=== PATIENT | male | born 1945 | race Caucasian/White ===

== ENCOUNTER 2017-05-17 19:32 | Inpatient (IN) | payer OTHER, MEDICARE ==
[~2017-05-17] VITALS: Ht 149.9 cm; Wt 61.8 kg
[~2017-05-17 19:32] MED LIST: AMARYL1 MG PO; AMIODARONE HCL200 MG PO; ASCORBIC ACID500 MG PO; ASPIRIN EC81 MG PO; BASLE60 GM TP; COUMADIN2 MG PO; DIGOXIN125 MCG PO; ENDUR-ACIN500 MG PO; EUCERIN CREME120 GM TOP; FERROUS SULFAT325 MG PO; FLOVENT HFA12 G1 INH; GLUCOSE GEL38 GM PO; GLUCOSE4 GM PO; HYDROMORPHONE HC2 MG PO; LACTULOSE10 GM/15 M PO; LANTUS100 UNITS/ SUB-Q; LYRICA150 MG; LYRICA150 MG PO; MAGNESIUM OXID420 MG PO; METFORMIN HCL500 MG PO; METOPROLOL SUC200 MG PO; MINIPRESS1 MG PO; MIRTAZAPINE30 MG PO; MORPHINE SULFAT30 M1 PO; MULTIVITAMINS1 EAC8 PO; NICOTINE PATCH1 EAC3 TD; NITROGLYCERIN0.4 MG SL; SIMVASTATIN20 MG PO; VENTOLIN HFA18 GM IH; VITAMIN D1000 UNIT PO; ZOFRAN4 MG PO; ZYRTEC10 M3 PO
--- NOTE | 2017-05-18 00:41 | NUR ---
PT ARRIVED ON FLOOR AT 2320. PT AT FIRST REFUSED IV FLUIDS, NEW IV, AND TELE. MD WOODALL WAS CALLED. AT THIS TIME, PT IS GETTIN IV FLUIDS, HE IS WEARING TELE #3 (PT STATED FOR ONLY 1 HR), IV IS STILL A FIELD START. PT STATED THAT HE WILL LEAVE AT 0800 ON 05/18/17. PT ALSO STATED THAT HE DOES NOT FOLLOW A DIABETIC DIET, AND DOES NOT PLAN TO DO SO WHILE HERE. PT IS AAO X4, PT HAS LEFT SIDED ARM WEAKNESS, PERRLA IS +, ALL LOBES ARE CLEAR, RADIAL PULSES +2, NO PERIPHERAL EDEMA NOTED. PT HAS BILATERAL BKA. LAST BM WAS 05/16/17.
--- NOTE | 2017-05-18 02:07 | NUR ---
PT IS SLEEPING AT THIS TIME. HR IS 71, NORMAL SINUS RHYTHM.
--- NOTE | 2017-05-18 02:30 | NUR ---
PT AT THIS TIME HAS TAKEN HIMSELF OFF TELE #3.
--- NOTE | 2017-05-18 04:05 | NUR ---
PT IS SLEEPING AT THIS TIME.
--- NOTE | 2017-05-18 04:45 | NUR ---
PT REFUSED NEURO CHECK AND SECOND ASSESSMENT. PT ALSO IS REFUSING TELE NOW. PT IS BACK TO SLEEP. V/S WERE DONE. THEY WERE WDL.
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
--- NOTE | 2017-05-18 07:35 | NUR ---
ROUNDED WITH COMPANY MARKER RN RICH. PATIENT INFORMED ME THAT HE WILL LEAVE AMA THIS MORNING WHEN HIS GETS HERE. PATIENT IS CONTINUE TO HAVE MILD L SIDED HAND WEAKNESS. PATIENT IS REFUSING MEAGN CHECKS AT THIS TIME. REFUSED LAB WORK THIS AM. INFORMED PATIENT THAT I WOULD CALL DR. WOODALL AND LET HIM KNOW THAT HE IS PLANNING ON LEAVING. PATIENT INFORMED ME THAT HE ALREADY KNOWS THAT HE WANTS TO LEABE BECAUSE THE PATIENT TOLD HIM IN THE ED. PATIENT ORDERED BREAKFAST AND NO OTHER NEEDS AT THIS TIME.
--- NOTE | 2017-05-18 08:02 | NUR ---
CALLED DR. WOODALL TO UPDATE ON PATIENT REQUESTING TO LEAVE AMA. PATIENT SIGNED FORM. AWAITING TO DIRECT SERVICE WORKER PATIENT AT THIS TIME.
--- NOTE | 2017-05-18 08:03 | NUR ---
PT WATCHING TV IN BED. COFFEE AT BEDSIDE, REFUSED WATER. EMPITED TRASH. CALL LIGHT IN REACH.
--- NOTE | 2017-05-18 08:46 | NUR ---
PATIENT SAT ON EDGE OF BED FOR BREAKFAST. PATIENT SWALLOWING WELL. NO ISSUES AT THIS TIME. REMAINS REFUSING MEGAN ASSESSMENT. PATIENT IS NICE ABOUT REFUSING, BUT STATING, " NO I DONT WANT YOU DO TO ANY ASSESSMENT. ". IS ON HER WAY WITH HIS WC. PATIENT REFUSED INSULIN AND PO SCHEDULED MEDICATIONS. PATIENT STATING, " I WILL TAKE MY OWN MEDICATION WHEN HOME". NO OTHER NEEDS AT THIS TIME. CARE MANAGMENT IN ROOM TO INTERVIEW PATIENT.
--- NOTE | 2017-05-18 09:45 | NUR ---
PATIENT REFUSED AM CARE, WILL BE HERE SOON FOR DISCHARGE. B/P MAP WAS 123- NOTIFIED JOVANNI JUAN. CALL LIGHT IN REACH.
--- NOTE | 2017-05-18 10:09 | NUR ---
I CALLED [facility] DR[facility] OFFICE [phone] LEFT MESSAGE TO RETURN MY CALL THIS AM.
--- NOTE | 2017-05-18 11:37 | NUR ---
CHW saw patient in room#110 before leaving [place]. Unknown if son was present in the room or someone else. CHW discussed a follow up home assessment after discharge to make sure VA services are all being provided. CHW will be working with the [facility] and will also work with the VA to change providers per patient request. CHW will follow up with patient next week for a home assessment.
--- NOTE | 2017-05-18 11:45 | NUR ---
CHW met with patient in room#123. Patient was awake and alert/oriented. CHW discussed with patient about meeting after discharge to do a home visit to make sure patient is getting all services he needs. Patient is more than willing to accept any help. CHW will call and schedule a follow up assessment.
--- NOTE | 2017-05-18 20:30 | EKG ---
[facility] [address] [place] [address] Signed Normal sinus rhythm Inferior infarct , age undetermined Anteroseptal infarct , age undetermined Abnormal ECG No previous ECGs available Confirmed by JAVI WOODALL MD ([id number]) on 05/18/2017 8:30:01 PM Electronically Signed By: JAVI WOODALL MD 05/18/17 2030 PATIENT NAME: MICHAEL BACK Electrocardiogram DATE OF : 43 PHYSICIAN: JAVI WOODALL MD REPORT #: [id number] REPORT IS CONFIDENTIAL AND NOT TO BE RELEASED WITHOUT AUTHORIZATION
[2017-08-23] MEDS ORDERED: XARELTO10 MG PO (12:43)
[2017-08-23] MEDS ORDERED: METHADONE HCL5 MG PO (12:43)
[2017-08-23] MEDS ORDERED: DIPHENHYDRAMINE50 M1 PO (12:58)
[2017-08-23] MEDS ORDERED: PREDNISONE50 MG PO (12:59)
[2017-08-23] MEDS ORDERED: NALOXONE INJ (13:00)
[2017-08-23] MEDS ORDERED: NARCAN4 MG NAS (13:00)
== END 2017-05-18 10:50 | disposition left against medical advice (07) | DRG 64 ==
LOC: ED 19:32 → MS 22:44
PROVIDERS: ADMIT Internal Medicine
DX: I63.9 Cerebral infarction, unspecified (principal); G93.41 Metabolic encephalopathy; G81.94 Hemiplegia, unspecified affecting left nondominant side; I10 Essential (primary) hypertension; R29.714 NIHSS score 14; I25.10 Atherosclerotic heart disease of native coronary artery without angina pectoris; I48.0 Paroxysmal atrial fibrillation; J44.9 Chronic obstructive pulmonary disease, unspecified; F17.210 Nicotine dependence, cigarettes, uncomplicated; E11.9 Type 2 diabetes mellitus without complications; G89.4 Chronic pain syndrome; Z79.01 Long term (current) use of anticoagulants; Z79.4 Long term (current) use of insulin
CPT/HCPCS: 70450; 70496; 70498; 71045; 80053; 80061; 80162; 81001; 83036; 83735; 84484; 85025; 85610; 85730; 93005; 93010; 99285; G0480; J3475; J7030; J7120; Q9967

== ENCOUNTER 2017-05-30 17:55 | Emergency (ER) | payer OTHER ==
[~2017-05-30] VITALS: Ht 149.9 cm; Wt 61.8 kg
[2017-05-30] MEDS ORDERED: METHADONE HCL5 MG PO (18:11)
[2017-08-23] MEDS ORDERED: XARELTO10 MG PO (12:43)
[2017-08-23] MEDS ORDERED: METHADONE HCL5 MG PO (12:43)
[2017-08-23] MEDS ORDERED: DIPHENHYDRAMINE50 M1 PO (12:58)
[2017-08-23] MEDS ORDERED: PREDNISONE50 MG PO (12:59)
[2017-08-23] MEDS ORDERED: NARCAN4 MG NAS (13:00)
[2017-08-23] MEDS ORDERED: NALOXONE INJ (13:00)
== END 2017-05-30 20:40 | disposition home or self-care (01) ==
LOC: ED 17:55
DX: J44.0 Chronic obstructive pulmonary disease with (acute) lower respiratory infection (principal); J20.9 Acute bronchitis, unspecified; E11.9 Type 2 diabetes mellitus without complications; F17.200 Nicotine dependence, unspecified, uncomplicated; Z88.1 Allergy status to other antibiotic agents; Z79.899 Other long term (current) drug therapy; Z79.01 Long term (current) use of anticoagulants; Z79.4 Long term (current) use of insulin; Z79.82 Long term (current) use of aspirin
CPT/HCPCS: 71046; 80053; 80162; 83735; 83880; 84484; 85025; 85610; 87502; 94640; 96372; 96374; 99284; J2405; J7030

== ENCOUNTER 2018-03-04 14:43 | Emergency (ER) | payer OTHER ==
[~2018-03-04] VITALS: Ht 149.9 cm; Wt 52.2 kg
[~2018-03-04 14:43] MED LIST changes: +DIPHENHYDRAMINE50 M1 PO; +METHADONE HCL5 MG PO; +NALOXONE INJ; +NARCAN4 MG NAS; +PREDNISONE50 MG PO; +XARELTO10 MG PO
[2018-03-04] MEDS ORDERED: CLEOCIN HCL300 MG PO (18:15)
== END 2018-03-04 18:33 | disposition home or self-care (01) ==
LOC: ED 14:43
DX: T87.43 Infection of amputation stump, right lower extremity (principal); L02.415 Cutaneous abscess of right lower limb; L03.115 Cellulitis of right lower limb; E11.65 Type 2 diabetes mellitus with hyperglycemia; I25.2 Old myocardial infarction; Z86.73 Personal history of transient ischemic attack (TIA), and cerebral infarction without residual deficits; F17.200 Nicotine dependence, unspecified, uncomplicated; Z89.512 Acquired absence of left leg below knee; Z88.8 Allergy status to other drugs, medicaments and biological substances; Z79.899 Other long term (current) drug therapy; Z79.82 Long term (current) use of aspirin; Z79.4 Long term (current) use of insulin
CPT/HCPCS: 36415; 73590; 80053; 85025; 87070; 87077; 87186; 87205; 99283

== ENCOUNTER 2018-12-19 15:27 | Emergency (ER) | payer OTHER ==
[~2018-12-19] VITALS: Ht 149.9 cm; Wt 52.2 kg
--- OUTSIDE RECORDS SUMMARY | ~2018-12-19 | XMS | Clinical Summary ---
Demographics + + + | Address | [address] | | | [place] [address] | + + + | Home Phone | | + + + | Preferred Language | Unknown | + + + | Marital Status | Single | + + + | Baptist Affiliation | Unknown | + + + | Race | Unknown | + + + | Ethnic Group | Unknown | + + + Author + + + | Author | [employer] (Historical as of | | | 10-20-18) | + + + | Organization | [facility] [employer] (Historical as of | | | 10-20-18) | + + + | Address | Unknown | + + + | Phone | Unavailable | + + + Support + + + + + | Name | Relationship | Address | Phone | + + + + + | Chalo Back | ECON | [address] | | | | | [place] | | | | | [address] | | + + + + + Care Team Providers + +------+ + | Care Shellfish Manager Name | Role | Phone | + +------+ + | Francesca Rosales | PP | | | ENROLLMENT MANAGEMENT MANAGER | | | + +------+ + Allergies + + + + + + | Active Allergy | Reactions | Severity | Noted | Comments | | | | | Date | | + + + + + + | Penicillins | Other (See Comments) | Medium | 08/11/19 | unknown | | | | | 13 | | + + + + + + | Sulfa Antibiotics | Other (See Comments) | Medium | 08/11/19 | Unknown | | | | | 13 | | + + + + + + Current Medications + + +-------+---------+------+------+-------+ | Prescription | Sig. | Disp. | Refills | Star | End | Statu | | | | | | t | Date | s | | | | | | Date | | | + + +-------+---------+------+------+-------+ | insulin glargine | Inject 50 Units into | | | | | Activ | | (LANTUS) 100 UNIT/ML | the skin nightly. | | | | | e | | injection | | | | | | | + + +-------+---------+------+------+-------+ | simvastatin | Take 20 mg by mouth | | | | | Activ | | (ZOCOR) 20 MG tablet | nightly. | | | | | e | + + +-------+---------+------+------+-------+ | pregabalin | Take 100 mg by mouth | | | | | Activ | | (LYRICA) 100 MG | 2 (two) times | | | | | e | | capsule | daily. | | | | | | + + +-------+---------+------+------+-------+ | nitroGLYCERIN | Place 0.4 mg under | | | | | Activ | | (NITROSTAT) 0.4 MG | the tongue every 5 | | | | | e | | SL tablet | (five) minutes as | | | | | | | | needed. | | | | | | + + +-------+---------+------+------+-------+ | nicotine (NICODERM | Place 1 patch onto | | | | | Activ | | CQ) 14 MG/24HR | the skin daily. | | | | | e | + + +-------+---------+------+------+-------+ | Multiple | Take 1 tablet by | | | | | Activ | | Vitamins-Minerals | mouth daily. | | | | | e | | (MULTIVITAMIN WITH | | | | | | | | MINERALS) tablet | | | | | | | + + +-------+---------+------+------+-------+ | niacin 500 MG | Take 500 mg by mouth | | | | | Activ | | tablet | daily with | | | | | e | | | breakfast. | | | | | | + + +-------+---------+------+------+-------+ | morphine (MSIR) 30 | Take 30 mg by mouth | | | | | Activ | | MG tablet | every 6 (six) hours | | | | | e | | | as needed. | | | | | | + + +-------+---------+------+------+-------+ | mirtazapine | Take 30 mg by mouth | | | | | Activ | | (REMERON) 30 MG | nightly. | | | | | e | | tablet | | | | | | | + + +-------+---------+------+------+-------+ | albuterol, VENT, | Inhale 2 puffs into | | | | | Activ | | (PROVENTIL | the lungs every 4 | | | | | e | | HFA;VENTOLIN HFA) | (four) hours as | | | | | | | 108 (90 BASE) | needed. | | | | | | | MCG/ACT inhaler | | | | | | | + + +-------+---------+------+------+-------+ | hydrophilic | Apply 60 g topically | | | | | Activ | | ointment | as needed. | | | | | e | + + +-------+---------+------+------+-------+ | HYDROmorphone | Take 2 mg by mouth | | | | | Activ | | (DILAUDID) 2 MG | every 6 (six) hours | | | | | e | | tablet | as needed. | | | | | | + + +-------+---------+------+------+-------+ | glimepiride | Take 1 mg by mouth 3 | | | | | Activ | | (AMARYL) 1 MG tablet | (three) times | | | | | e | | | daily. | | | | | | + + +-------+---------+------+------+-------+ | fluticasone | Inhale 1 puff into | | | | | Activ | | (FLOVENT HFA) 220 | the lungs 2 (two) | | | | | e | | MCG/ACT inhaler | times daily. | | | | | | + + +-------+---------+------+------+-------+ | digoxin (LANOXIN) | Take 125 mcg by | | | | | Activ | | 0.125 MG tablet | mouth daily. | | | | | e | + + +-------+---------+------+------+-------+ | dextrose 5 G | Take 38 g by mouth | | | | | Activ | | chewable tablet | as needed. | | | | | e | + + +-------+---------+------+------+-------+ | cetirizine | Take 10 mg by mouth | | | | | Activ | | (ZYRTEC) 10 MG | daily. | | | | | e | | tablet | | | | | | | + + +-------+---------+------+------+-------+ | aspirin 81 MG EC | Take 81 mg by mouth | | | | | Activ | | tablet | daily with | | | | | e | | | breakfast. | | | | | | + + +-------+---------+------+------+-------+ | amiodarone | Take 200 mg by mouth | | | | | Activ | | (PACERONE) 200 MG | daily. | | | | | e | | tablet | | | | | | | + + +-------+---------+------+------+-------+ | metformin | Take 1,000 mg by | | | | | Activ | | (GLUCOPHAGE) 1000 MG | mouth 2 (two) times | | | | | e | | tablet | daily with meals. | | | | | | + + +-------+---------+------+------+-------+ | warfarin | Take 2 tablets by | | | 11/05 | | Activ | | (COUMADIN) 2 MG | mouth daily. | | | 07/23 | | e | | tablet | | | | 13 | | | + + +-------+---------+------+------+-------+ Active Problems + + + | Problem | Noted Date | + + + | Nonhealing surgical wound | 11/24/2012 | + + + | Acute pain | 11/24/2012 | + + + | PVD (peripheral vascular disease) | 08/18/2012 | + + + | Debility, unspecified | 08/18/2012 | + + + | Fever | 08/17/2012 | + + + | SIRS (systemic inflammatory response syndrome) | 08/17/2012 | + + + | Gangrene of toe (HCC) | 08/15/2012 | + + + | Osteomyelitis of toe of left foot (HCC) | 08/14/2012 | + + + | Cellulitis of toe, left | 08/11/2012 | + + + | DM type 2 (diabetes mellitus, type 2) | 08/11/2012 | + + + | COPD (chronic obstructive pulmonary disease) | 08/11/2012 | + + + | HTN (hypertension) | 08/11/2012 | + + + | CAD (coronary artery disease) | 08/11/2012 | + + + | ARF (acute renal failure) | 08/11/2012 | + + + | Neuropathy | 08/11/2012 | + + + | Dyslipidemia | 08/11/2012 | + + + | PAD (peripheral artery disease) | | + + + | intermediate card tender current use of anticoagulant | | + + + | Current smoker | | + + + | Osteomyelitis (HCC) | | + + + | Hypertension | | + + + | Atrial fibrillation (HCC) | | + + + Family History + + +------+ + | Medical History | Relation | Name | Comments | + + +------+ + | Stroke | Father | | | + + +------+ + | Heart disease | Mother | | | + + +------+ + + +------+ + + | Relation | Name | Status | Comments | + +------+ + + | Father | | | | | | | (Age | | | | | 84) | | + +------+ + + | Mother | | | | | | | (Age | | | | | 85) | | + +------+ + + Social History + +-------+ +--------+------+ | Tobacco Use | Types | Packs/Day | Years | Date | | | | | Used | | + +-------+ +--------+------+ | Current Every Day | | 0.5 | | | | Smoker | | | | | + +-------+ +--------+------+ + +---+---+---+ | Smokeless Tobacco: | | | | | Never Used | | | | + +---+---+---+ + + | Comments: 2.5 PK PER YEAR UNTIL 4 MONTHS AGO WHEN DECREASED TO HALF PK PER DAY | + + + + +---------+ + | Alcohol Use | Drinks/We | oz/Week | Comments | | | ek | | | + + +---------+ + | No | | | | + + +---------+ + + + + | Sex Assigned at | Date Recorded | | | | + + + | Not on file | | + + + Last Filed Vital Signs + + + + | Vital Sign | Reading | Time Taken | + + + + | Blood Pressure | 156/72 | 03/10/2018 12:53 AM PST | + + + + | Pulse | 76 | 03/10/2018 12:53 AM PST | + + + + | Temperature | 36.9 C (98.5 F) | 03/10/2018 12:02 AM PST | + + + + | Respiratory Rate | 16 | 03/10/2018 12:53 AM PST | + + + + | Oxygen Saturation | 96% | 03/10/2018 12:53 AM PST | + + + + | Inhaled Oxygen | - | - | | Concentration | | | + + + + | Weight | 50.8 kg (112 lb) | 03/09/2018 10:15 PM PST | + + + + | Height | 180.3 cm (5' 11") | 11/24/2012 8:28 PM PDT | + + + + | Body Mass Index | 15.62 | 03/09/2018 10:15 PM PST | + + + + Plan of Treatment Not on file Results Not on filefrom Last 3 Months Insurance + +--------+ +------+ + + | Payer | Benefi | Subscriber | Type | Phone | Address | | | t Plan | ID | | | | | | / | | | | | | | Group | | | | | + +--------+ +------+ + + | [employer] | [employer] | [id number] | | [phone] [employer] [id number] | | ADMINISTRATION | [place] | | [phone] | | | [address] | | | | [address] [place], [place] | | | [place] | | | | [phone] | | | ON | | | | | + +--------+ +------+ + + | MEDICARE | MEDICA | [id number] | | | [address] | | | RE | | | | [place] [address] | | | IP-OP | | | | | + +--------+ +------+ + + + +--------+ +--------+ + + | Guarantor Name | Accoun | Relation to | Date | Phone | Billing Address | | | t Type | Patient | of | | | | | | | | | | + +--------+ +--------+ + + | CHALO BACK | Person | Self [birth year] Home: | [address] | | | al/Fam | | 1946 | [phone] [place] | | | [place] | | | [phone] | [phone] | + +--------+ +--------+ + + | CHALO BACK | Raciel | Self [birth year] | Home: | [address] | | | ns | | 1946 | [phone] | [place] | | | [place] | | | [phone] | [phone] | | | [place] | | | | | | | on | | | | | + +--------+ +--------+ + +
--- OUTSIDE RECORDS SUMMARY | ~2018-12-19 | XMS | Encounter Summary ---
Demographics + + + | Address | [address] | | | [place] [address] | + + + | Home Phone | | + + + | Preferred Language | Unknown | + + + | Marital Status | | + + + | Mormonism Affiliation | Unknown | + + + | Race | Unknown | + + + | Ethnic Group | Unknown | + + + Author + + + | Author | [facility] | | | and [place] | + + + | Organization | [facility] | | | and [place] | + + + | Address | Unknown | + + + | Phone | Unavailable | + + + Support + + + + + | Name | Relationship | Address | Phone | + + + + + | Theresa Barrientos | ECON | [place], [place] | | | | | [address] | | + + + + + | Theresa Mann | ECON | [address] | | | | | [place] | | | | | [address] | | + + + + + Care Team Providers + +------+ + | Care Political Science Instructor Name | Role | Phone | + +------+ + | Francesca Birmingham | PCP | | + +------+ + Encounter Details +--------+ + + + + | Date | Type | Department | Care Team | Description | +--------+ + + + + | 09/30/ | Orders Only | [facility] | Provider, | | | 2019 | | [facility] | [address] | | | | | [address] | | | | | [address] [place], [place] | [place] [address] | | | | | [address] | | | | | | [phone] | | | +--------+ + + + + Social History + + + +--------+------+ | Tobacco Use | Types | Packs/Day | Years | Date | | | | | Used | | + + + +--------+------+ | Current Every Day | Cigarettes | 0.5 | | | | Smoker | | | | | + + + +--------+------+ + + | Comments: 2.5 PK PER [...] on file | | + + + + + + + | Job Start Date | Occupation | Industry | + + + + | Not on file | Not on file | Not on file | + + + + + + + + | Travel History | Travel Start | Travel End | + + + + + + | No recent travel history available. | + + documented as of this encounter Functional Status + + + + | Functional Status | Response | Date of Assessment | + + + + | Are you deaf or do you have serious | No | 05/26/2015 | | difficulty hearing? | | | + + + + | Are you blind or do you have serious | No | 05/26/2015 | | difficulty seeing, even when wearing | | | | glasses? | | | + + + + | Do you have serious difficulty walking or | No | 05/26/2015 | | climbing stairs? (5 years old or older) | | | + + + + | Do you have difficulty dressing or bathing? | No | 05/26/2015 | | (5 years old or older) | | | + + + + | Because of a physical, mental, or emotional | No | 05/26/2015 | | condition, do you have difficulty doing | | | | errands alone such as visiting a doctor's | | | | office or shopping? [15 years old or | | | | older)] | | | + + + + + + + + | Cognitive Status | Response | Date of Assessment | + + + + | Because of a physical, mental, or emotional | No | 05/26/2015 | | condition, do you have serious difficulty | | | | concentrating, remembering, or making | | | | decisions? (5 years old or older) | | | + + + + documented as of this encounter Plan of Treatment Not on filedocumented as of this encounter Visit Diagnoses Not on filedocumented in this encounter"
--- OUTSIDE RECORDS SUMMARY | ~2018-12-19 | XMS | Clinical Summary ---
Demographics + + + | Address | [address] | | | [place] [address] | + + + | Home Phone | | + + + | Preferred Language | Unknown | + + + | Marital Status | | + + + | Protestant Affiliation | Unknown | + + + | Race | Unknown | + + + | Ethnic Group | Unknown | + + + Author + + + | Author | [facility] | | | and [place] | + + + | Organization | [facility] | | | and [place] | + + + | Address | Unknown | + + + | Phone | Unavailable | + + + Support + + + + + | Name | Relationship | Address | Phone | + + + + + | Theresa Barrientos | ECON | [place], [place] | | | | | [address] | | + + + + + | Theresa Mann | ECON | [address] | | | | | [place] | | | | | [address] | | + + + + + Care Team Providers + +------+ + | Care Hr Clerk Name | Role | Phone | + +------+ + | Francesca Birmingham | PCP | | + +------+ + Allergies + + + + + + | Active Allergy | Reactions | Severity | Noted | Comments | | | | | Date | | + + + + + + | Capsaicin | | | 04//20 | | | | | | 12 | | + + + + + + | Glyburide | | | /12/23 | Pt states he is | | | | | 12 | not allergic | + + + + + + | Latex | Rash | Low | /05/20 | | | | | | 16 | | + + + + + + | Lisinopril | | | 06/14/19 | No allergy | | | | | 12 | | + + + + + + | Pineapple | Hives | | 03/10/19 | | | | | | 16 | | + + + + + + | Promethazine Hcl | | | 06/14/19 | No allergy | | | | | 12 | | + + + + + + | Sulfa Antibiotics | Other (See Comments) | Medium | 08/11/19 | Unknown | | | | | 13 | | + + + + + + | Sulfamethoxazole | | | 06/14/19 | No allergy | | | | | 12 | | + + + + + + | Varenicline Tartrate | | | /20 | | | | | | 12 | | + + + + + + Medications + + + +---------+------+------+-------+ | Medication | Sig | Dispensed | Refills | Star | End | Statu | | | | | | t | Date | s | | | | | | Date | | | + + + +---------+------+------+-------+ | insulin glargine | inject 27 units | | 0 | 04/1 | | Activ | | (LANTUS SOLOSTAR) | subcutaneous at | | | 0/20 | | e | | 100 units/mL | bedtime | | | 12 | | | | injection | | | | | | | + + + +---------+------+------+-------+ | Multiple | one daily | | 0 | 04/1 | | Activ | | Vitamins-Minerals | | | | 0/20 | | e | | (PX ADVANCED FORMULA | | | | 12 | | | | MULTIVITS) TABS | | | | | | | + + + +---------+------+------+-------+ | pregabalin | Take 150 mg by mouth | | 0 | 04/1 | | Activ | | (LYRICA) 150 MG | 3 times daily. | | | 0/20 | | e | | capsule | | | | 12 | | | + + + +---------+------+------+-------+ | simvastatin | Take 20 mg by mouth | | 0 | 04/1 | | Activ | | (ZOCOR) 20 mg tablet | nightly. | | | 0/20 | | e | | | | | | 12 | | | + + + +---------+------+------+-------+ | | 2 puffs four times | | 0 | 04/1 | | Activ | | albuterol-ipratropiu | daily | | | 0/20 | | e | | m (COMBIVENT) 103-18 | | | | 12 | | | | mcg/puff inhaler | | | | | | | + + + +---------+------+------+-------+ | mirtazapine | Take 30 mg by mouth | | 0 | 04/1 | | Activ | | (REMERON) 30 MG | nightly. | | | 0/20 | | e | | tablet | | | | 12 | | | + + + +---------+------+------+-------+ | nitroglycerin | one as directed for | | 0 | 04/1 | | Activ | | (NITROSTAT) 0.4 mg | chest pain | | | 0/20 | | e | | SL tablet | | | | 12 | | | + + + +---------+------+------+-------+ | HYDROmorphone | Take 3 mg by mouth | | 0 | | | Activ | | (DILAUDID) 2 mg | every 6 hours as | | | | | e | | tablet | needed for Pain. | | | | | | + + + +---------+------+------+-------+ | metFORMIN | Take 1,000 mg by | | 0 | | | Activ | | (GLUCOPHAGE) 1000 MG | mouth 2 times daily | | | | | e | | tablet | (with breakfast & | | | | | | | | dinner). | | | | | | + + + +---------+------+------+-------+ | morphine (MS | Take 30 mg by mouth | | 0 | | | Activ | | CONTIN) 30 mg ER | 3 times daily. | | | | | e | | tablet | | | | | | | + + + +---------+------+------+-------+ | clopidogrel | Take 75 mg by mouth | | 0 | | | Activ | | (PLAVIX) 75 mg | Daily. | | | | | e | | tablet | | | | | | | + + + +---------+------+------+-------+ | amiodarone | Take 200 mg by mouth | | 0 | | | Activ | | (PACERONE) 200 mg | Daily. | | | | | e | | tablet | | | | | | | + + + +---------+------+------+-------+ | ascorbic acid | Take 1,000 mg by | | 0 | | | Activ | | (VITAMIN C) 500 mg | mouth Daily. | | | | | e | | tablet | | | | | | | + + + +---------+------+------+-------+ | cetirizine | Take 10 mg by mouth | | 0 | | | Activ | | (ZYRTEC) 10 mg | Daily. | | | | | e | | tablet | | | | | | | + + + +---------+------+------+-------+ | digoxin (LANOXIN) | Take 125 mcg by | | 0 | | | Activ | | 125 mcg tablet | mouth Daily. | | | | | e | + + + +---------+------+------+-------+ | ferrous sulfate | Take 325 mg by mouth | | 0 | | | Activ | | 325 mg tablet | daily (with | | | | | e | | | breakfast). | | | | | | + + + +---------+------+------+-------+ | glimepiride | Take 1 mg by mouth 3 | | 0 | | | Activ | | (AMARYL) 1 mg tablet | times daily (with | | | | | e | | | meals). | | | | | | + + + +---------+------+------+-------+ | insulin aspart | Inject 10 Units | | 0 | | | Activ | | (NOVOLOG PENFILL) | under the skin 3 | | | | | e | | 100 units/mL | times daily (before | | | | | | | injection cartridge | meals). Per sliding | | | | | | | | scale | | | | | | + + + +---------+------+------+-------+ | LACTOBACILLUS PO | Take 2 tablets by | | 0 | | | Activ | | | mouth 3 times daily | | | | | e | | | (with meals). | | | | | | + + + +---------+------+------+-------+ | lactulose 10 g/15 | Take 20 g by mouth | | 0 | | | Activ | | mL solution | every 72 hours as | | | | | e | | | needed | | | | | | | | (Constipation). | | | | | | + + + +---------+------+------+-------+ | magnesium oxide | Take 420 mg by mouth | | 0 | | | Activ | | (MAOX) 420 MG TABS | 2 times daily. | | | | | e | + + + +---------+------+------+-------+ | metoprolol | Take 50 mg by mouth | | 0 | | | Activ | | succinate | Daily. | | | | | e | | (TOPROL-XL) 50 mg 24 | | | | | | | | hr tablet | | | | | | | + + + +---------+------+------+-------+ | cadexomer iodine | Use daily for wound | 40 g | 1 | 03/2 | | Activ | | (IODOSORB) 0.9 % gel | care | | | 2/20 | | e | | | | | | 16 | | | + + + +---------+------+------+-------+ | collagenase | Use daily for wound | 30 g | 1 | 03/2 | | Activ | | (SANTYL) ointment | care | | | 2/20 | | e | | | | | | 16 | | | + + + +---------+------+------+-------+ | aspirin 81 MG EC | Take 81 mg by mouth | | 0 | | | Activ | | tablet | daily with | | | | | e | | | breakfast. | | | | | | + + + +---------+------+------+-------+ | glucose (BD | Take 38 g by mouth | | 0 | | | Activ | | GLUCOSE) 5 g | as needed. | | | | | e | | chewable tablet | | | | | | | + + + +---------+------+------+-------+ | fluticasone | Inhale 1 puff into | | 0 | | | Activ | | (FLOVENT HFA) 220 | the lungs 2 (two) | | | | | e | | mcg/puff inhaler | times daily. | | | | | | + + + +---------+------+------+-------+ | hydrophilic | Apply 60 g topically | | 0 | | | Activ | | ointment | as needed. | | | | | e | + + + +---------+------+------+-------+ | niacin 500 mg | Take 500 mg by mouth | | 0 | | | Activ | | tablet | daily with | | | | | e | | | breakfast. | | | | | | + + + +---------+------+------+-------+ | nicotine | Place 1 patch onto | | 0 | | | Activ | | (NICODERM) 14 mg/24 | the skin daily. | | | | | e | | hr | | | | | | | + + + +---------+------+------+-------+ | warfarin | Take 2 tablets by | | 0 | 09/2 | | Activ | | (COUMADIN) 2 mg | mouth daily. | | | 07/23 | | e | | tablet | | | | 13 | | | + + + +---------+------+------+-------+ | albuterol (PROAIR | Inhale 2 puffs into | | 0 | | | Activ | | RESPICLICK) 90 | the lungs every 4 | | | | | e | | mcg/puff inhaler | (four) hours as | | | | | | | | needed. | | | | | | + + + +---------+------+------+-------+ | ciprofloxacin | take 1 tablet by | | 0 | 01/0 | | Activ | | (CIPRO) 500 mg | mouth twice a day | | | /20 | | e | | tablet | for 5 days | | | 19 | | | + + + +---------+------+------+-------+ | clindamycin | take 1 capsule by | | 0 | 12/3 | | Activ | | (CLEOCIN) 300 MG | mouth four times a | | | 1/20 | | e | | capsule | day | | | 18 | | | + + + +---------+------+------+-------+ | methadone 5 mg | take 1 tablet by | | 0 | 04/1 | | Activ | | tablet | mouth every 12 hours | | | 5/20 | | e | | | not more than 2 | | | 19 | | | | | tablets daily | | | | | | + + + +---------+------+------+-------+ Active Problems + + + | Problem | Noted Date | + + + | 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 | 09/30/2018 | + + + | Osteomyelitis | 09/30/2018 | + + + | Atrial fibrillation | 09/30/2018 | + + + | Current smoker | 09/30/2018 | + + + | Medical non-compliance | 05/26/2015 | + + + | Acute osteomyelitis of right foot | 05/23/2015 | + + + | Acute hyperkalemia | 05/23/2015 | + + + | Essential hypertension | 05/23/2015 | + + + | PVD (peripheral vascular disease) | 05/23/2015 | + + + | Tobacco user | 05/23/2015 | + + + | Ischemic ulcers of right foot, subsequent encounter | 05/23/2015 | + + + | Paroxysmal atrial fibrillation | 05/23/2015 | + + + | Diabetic neuropathy | 05/23/2015 | + + + | Hx of BKA, left, patient reporting poor fitting prosthesis which | 05/23/2015 | | hasn't allowed him to ambulate | | + + + | Supratherapeutic INR | 05/22/2015 | + + + | Insulin dependent type 2 diabetes mellitus, uncontrolled | 05/22/2015 | + + + | Diabetic wet gangrene of the foot, right | 05/22/2015 | + + + | Diabetic wet gangrene of the foot | 03/10/2015 | + + + + + | Last Assessment & Plan: - Multiple areas of gangrene of the | | right foot, and started vancomycin/Zosyn for treatment after | | blood cultures drawn (initially received levofloxacin), give IV | | fluids overnight, and make NPO at midnight in case of possible | | surgery- Given his poor vascular supply and severe gangrene, | | advised him that it is likely a surgeon will recommend | | [id number] amputation, and he understood- Discussed with | | Chadd, who will evaluate him in the morning | + + + + + | Insulin dependent diabetes mellitus | 03/10/2015 | + + + + + | Last Assessment & Plan: - Blood sugar elevated on arrival, | | will give nighttime glargine and insulin sliding scale- Hold | | glimepiride and metformin for now | + + + + + | Diabetic neuropathy | 03/10/2015 | + + + + + | Last Assessment & Plan: - Has severe pain but not much other | | sensation in right foot- Continue pregabalin for neuropathy | |- Continue pregabalin for neuropathy | + + + + + | Hypertension | 03/10/2015 | + + + + + | Last Assessment & Plan: - Continue metoprolol and valsartan | + + + + + | Peripheral vascular disease | 03/10/2015 | + + + + + | Last Assessment & Plan: - CT scan showed severe disease of | | the common femoral and femoral arteries- Continue aspirin, hold | | warfarin for now given likely need for surgery soon. - Recheck | | INR in AM | |- Recheck INR in AM | + + +---------+ + | Smoking | 03/10/2015 | +---------+ + + + | Last Assessment & Plan: - Encourage cessation, nicotine patch | | while in the hospital | + + + + + | Acute pain | 11/24/2012 | + + + | Nonhealing surgical wound | 11/24/2012 | + + + | Debility | 08/18/2012 | + + + | Peripheral vascular disease | 08/18/2012 | + + + | Fever | 08/17/2012 | + + + | SIRS (systemic inflammatory response syndrome) | 08/17/2012 | + + + | Gangrene of toe | 08/15/2012 | + + + | Osteomyelitis of toe of left foot | 08/14/2012 | + + + | ARF (acute renal failure) | 08/11/2012 | + + + | Cellulitis of toe, left | 08/11/2012 | + + + | COPD (chronic obstructive pulmonary disease) | 08/11/2012 | + + + | Coronary atherosclerosis | 08/11/2012 | + + + | Dyslipidemia | 08/11/2012 | + + + | Neuropathy | 08/11/2012 | + + + | HTN (hypertension) | 08/11/2012 | + + + | DM type 2 (diabetes mellitus, type 2) | 08/11/2012 | + + + | ABSCESS, PERIRECTAL | 06/14/2011 | + + + Encounters +--------+ + + + + | Date | Type | Specialty | Care Team | Description | +--------+ + + + + | 09/30/ | Orders Only | | Provider, | | | 2018 | | | Historical, MD | | +--------+ + + + + from Last 3 Months Family History + + +------+ + | [...] | | + +------+ + + | Father | | | | + +------+ + + | Mother | | | | | | | (Age | | | | | 85) | | + +------+ + + | Mother | | | | + +------+ + + Social History + + + [...] recent travel history available. | + + Last Filed Vital Signs + + + + | Vital Sign | Reading | Time Taken | + + + + | Blood Pressure | 156/72 | 03/10/201852 PST | + + + + | Pulse | 76 | 03/10/201852 PST | + + + + | Temperature | 36.9 C (98.5 F) | 03/10/201852 PST | + + + + | Respiratory Rate | 16 | 03/10/201852 PST | + + + + | Oxygen Saturation | 86% | 05/26/2015724 PDT | + + + + | Inhaled Oxygen | - | - | | Concentration | | | + + + + | Weight | 50.8 kg (112 lb) | 03/10/2018 0053 PST | + + + + | Height | 180.3 cm (5' 11") | 05/22/20151939 PDT | + + + + | Body Mass Index | 15.62 | 05/22/20151939 PDT | + + + + Plan of Treatment + + + + + | Health Maintenance | Due Date | Last Done | Comments | + + + + + | Vaccine: | | | | | Dtap/Tdap/Td (1 - | 4 | | | | Tdap) | | | | + + + + + | Vaccine: Zoster (1 | | | | | of 2) | 5 | | | + + + + + | Vaccine: | | | | | Pneumococcal 65+ | 0 | | | | Low/Medium Risk (1 | | | | | of 2 - PCV13) | | | | + + + + + | Vaccine: Influenza | | | | | (#1) | 9 | | | + + + + + Results Not on filefrom Last 3 Months Insurance + +--------+ +--------+ +---------+--------+ | Payer | Benefi | Subscriber | Effect | Phone | Address | Type | | | t Plan | ID | jovana | | | | | | / | | Dates | | | | | | Group | | | | | | + +--------+ +--------+ +---------+--------+ | [employer] [place] | [id number] | | | | Indemn | | | CHOICE | | 016-Pr | | | ity | | | PC3 | | esent | | | | + +--------+ +--------+ +---------+--------+ | MEDICARE | MEDICA | [id number] | 05/05/19 | [phone] | | Medica | | | RE | | 10-Pre | 5 | | re | | | PART A | | sent | | | | + +--------+ +--------+ +---------+--------+ | | [employer]ICAR | [id number] | | [phone] | | Indemn | | | E FOR | | 016-Pr | 0 | | ity | | | LIFE | | esent | | | | + +--------+ +--------+ +---------+--------+ | [employer] | [employer] | [id number] | 03/08/19 | | | Indemn | | | NS | | 16-Pre | | | ity | | | ADMIN | | sent | | | | | | [place] | | | | | | | | [place] | | | | | | + +--------+ +--------+ +---------+--------+ + +--------+ +--------+ + + | Guarantor Name | Accoun | Relation to | Date | Phone | Billing Address | | | t Type | Patient | of | | | | | | | | | | + +--------+ +--------+ + + | Chalo Barrientos | Person | Self [birth year] | [address] | | | al/Fam | | 1946 | [phone] | [place] | | | [place] | | | 9 (Home) | [phone] | + +--------+ +--------+ + + Advance Directives Patient has advance care planning documents, and code status on file. For more information, [facility] [place] [address] + + + + + | Code Status | Date | Date | Comments | | | Activated | Inactivated | | + + + + + | Full Code | 05/23/2015 | 05/26/2015 | | | | 2:53 | 14:04 | | + + + + + + + + +---+ | | | | | + + + +---+ | Full Code | 03/09/2015 | 03/12/2015 | | | | 22:17 | 14:22 | | + + + +---+
--- OUTSIDE RECORDS SUMMARY | ~2018-12-19 | XMS | Clinical Summary ---
Demographics + + + | Address | [address] | | | [place] [address] | + + + | Home Phone | | + + + | Preferred Language | Unknown | + + + | Marital Status | | + + + | Jehovah'S Witness Affiliation | Unknown | + + + | Race | Unknown | + + + | Ethnic Group | Unknown | + + + Author + + + | Author | [facility] | | | and [place] | + + + | Organization | 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 | 09/30/2018 | [...] likely a surgeon will recommend | | [id number] amputation, and he understood- Discussed with | [...] +---------+--------+ | [employer] | [place] | [id number] | | | | Indemn | | | CHOICE | | 016-Pr | | | ity | | | PC3 | | esent | | | | + +--------+ +--------+ +---------+--------+ | MEDICARE | MEDICA | [id number] | 05/05/19 | [phone] | | Medica | | | RE | | 10-Pre | 5 | | re | | | PART A | | sent | | | | + +--------+ +--------+ +---------+--------+ | | TRICAR | [id number] | | [phone] | | Indemn | | | E FOR | | 016-Pr | 0 | | ity | | | LIFE | | esent | | | | + +--------+ +--------+ +---------+--------+ | [employer]MIN | [place] | [id number] | 03/08/19 | | | Indemn | [...] | | al/Fam | | 1946 | [phone] | [place] | | | [place] | | | 9 (Home) | [address] | + +--------+ +--------+ + + Advance Directives Patient has advance care planning documents, and code status on file. For more information, please contact:[facility] [place] [facility] [place] [address] + + + + + | Code [...]
--- OUTSIDE RECORDS SUMMARY | ~2018-12-19 | XMS | Encounter Summary ---
Demographics + + + | Address | [address] | | | [place] [address] | + + + | Home Phone | | + + + | Preferred Language | Unknown | + + + | Marital Status | | + + + | Mandaeism Affiliation | Unknown | + + + | Race | Unknown | + + + | Ethnic Group | Unknown | + + + Author + + + | Author | [facility] | | | and [place] | + + + | Organization | [facility] | | | and [place] | + + + | Address | Unknown | + + + | Phone | Unavailable | + + + Support + + + + + | Name | Relationship | Address | Phone | + + + + + | Theresa Barrientos | ECON | [place], [place] | | | | | [address] | | + + + + + | Theresa Mann | ECON | [address] | | | | | [place] | | | | | [address] | | + + + + + Care Team Providers + +------+ + | Care Lean Leader Name | Role | Phone | + +------+ + | Francesca Birmingham | PCP | | + +------+ + Encounter Details +--------+ + + + + | Date | Type | Department | Care Team | Description | +--------+ + + + + | 09/30/ | Orders Only | [facility] | Provider, | | | 2019 | | [facility] | [address] | | | | | [address] | [address] | | | | | [address] [place], [place] | [place] [address] | | | | | [address] | | | | | | [phone] | | | +--------+ + + + [...]
--- OUTSIDE RECORDS SUMMARY | ~2018-12-19 | XMS | Clinical Summary ---
Demographics + + + | Address | [address] | | | [place] [address] | + + + | Home Phone | | + + + | Preferred Language | Unknown | + + + | Marital Status | Single | + + + | Evangelical Affiliation | Unknown | + + + | Race | Unknown | + + + | Ethnic Group | Unknown | + + + Author + + + | Author | [facility] (Historical as of | | | 10-20-18) | + + + | Organization | [facility] (Historical as of | | | 10-20-18) [...] [place] | | | | | [address] | | + + + + + Care Team Providers + +------+ + | Care Hand Stoner Name | Role | Phone | + +------+ + | Francesca Rosales | PP | | | RESOURCE MANAGEMENT SPECIALIST | | | + +------+ + Allergies [...] disease) | | + + + | 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 | | | ns | | 1946 | [phone] | [place] | | | [place] | | | [phone] | [phone] | | | [place] | | | | | | | on | | | | | + +--------+ +--------+ + +
[~2018-12-19 15:27] MED LIST changes: +CLEOCIN HCL300 MG PO
--- OUTSIDE RECORDS SUMMARY | 2018-12-19 15:30 | XMS ---
PreManage Notification: MICHAEL BACK Security Punch Box Tender Events No recent Security Events currently on file [facility] CARE PROVIDERS There are no care providers on record at this time. Nirav has no Care Guidelines for this patient. Arian VISIT COUNT (12 [address] [facility] 2 M[facility] [place] TOTAL 4 NOTE: Visits indicate total known visits. ED/C VISIT TRACKING (12 MO.) 12/19/2018 15:28 [facility] [place] TYPE: Emergency COMPLAINT: - WEAKNESS 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
--- NOTE | 2018-12-19 19:16 | EKG ---
[facility] [address] [place] [address] Signed Sinus rhythm with premature atrial complexes Anterior infarct (cited on or before 17-MAY-2017) Abnormal ECG When compared with ECG of 13-MAR-2018 16:23, premature atrial complexes are now present Minimal criteria for Inferior infarct are no longer present Confirmed by JAVI WOODALL MD ([id number]) on 12/19/2018 7:16:43 PM Electronically Signed By: JAVI WOODALL MD 12/19/18 1916 PATIENT NAME: MICHAEL BACK Electrocardiogram DATE OF : 43 PHYSICIAN: JAVI WOODALL MD REPORT #: [id number] REPORT IS CONFIDENTIAL AND NOT TO BE RELEASED WITHOUT AUTHORIZATION
[2018-12-19] MEDS ORDERED: FLAGYL500 MG PO (19:34)
[2018-12-19] MEDS ORDERED: CIPRO500 MG PO (19:34)
== END 2018-12-19 19:58 | disposition home or self-care (01) ==
LOC: ED 15:27
DX: K52.9 Noninfective gastroenteritis and colitis, unspecified (principal); E11.9 Type 2 diabetes mellitus without complications; F17.200 Nicotine dependence, unspecified, uncomplicated; Z88.1 Allergy status to other antibiotic agents; Z79.899 Other long term (current) drug therapy; Z79.52 Long term (current) use of systemic steroids; Z79.4 Long term (current) use of insulin; Z79.82 Long term (current) use of aspirin
CPT/HCPCS: 74177; 80053; 81001; 83690; 83735; 85025; 85610; 93005; 93010; 96361; 96374; 96375; 99284-25; J1170; J2405; J7030; Q9967